=== PATIENT | male | born 1955 | race Caucasian/White ===

== ENCOUNTER → 2019-08-10 | Outpatient (CLI) | payer OTHER ==
--- NOTE | 2019-08-10 17:07 | Diagnostic Imaging Report ---
EXAM: US TESTICULAR DOPPLER LTD DATE: 08/10/2019 4:03 PM INDICATION: Testicular pain COMPARISON: None FINDINGS: The right testicle measures 4.2 x 2.0 x 3.1 cm. The testicular parenchyma is homogeneous without evidence for focal abnormality. Arterial and venous flow are preserved. There is no evidence for hyperemia. The epididymis measures 1.1 x 1.0 x 1.0 cm. There is no significant hydrocele or varicocele present. The left testicle measures 3.7 x 2.7 x 3.2 cm. The testicular parenchyma is homogeneous without evidence for focal abnormality. Arterial and venous flow are preserved. The left epididymis measures 1.1 x 1.6 x 1.2 cm and contains a 1.1 x 0.6 x 1.0 cm simple cyst. There is a small left-sided hydrocele present. No significant varicocele is present. Herniation of mesenteric fat noted within the superior left scrotum with Valsalva. No definite herniated loop of bowel identified. IMPRESSION: Sonographic findings compatible with left inguinal hernia with herniation of mesenteric fat into the superior left scrotum. No definite herniated loop of bowel identified. Small left epididymal cyst. Small left hydrocele. Signed by: Dr. Gus Lorenzana MD on 08/10/2019 5:03 PM
== END ==
LOC: RAD 15:55
PROVIDERS: ATTEND Family Medicine
DX: N50.819 Testicular pain, unspecified (principal); N43.3 Hydrocele, unspecified; N50.3 Cyst of epididymis
CPT/HCPCS: 76870; 93976